=== PATIENT | female | born 1965 | race Caucasian/White ===

== ENCOUNTER → 2020-04-22 13:55 | Outpatient (CLI) | payer BC, SELFPAY ==
--- NOTE | ~2020-04-22 | MM_ITS ---
EXAMINATION: MM screening [facility] BI w alek HISTORY: Screening mammogram TECHNIQUE: Craniocaudal and mediolateral oblique 3-D tomosynthesis images were obtained and synthetic 2-D images were generated. CAD analysis was submitted and interpreted. COMPARISON: 12/20/2018, 12/06/2017, 06/27/2016 BREAST PARENCHYMAL COMPOSITION: There are scattered areas of fibroglandular density. FINDINGS: There is no evidence of suspicious mass, calcification, or architectural distortion to sugg est malignancy in either breast. There has been no suspicious interval change. IMPRESSION: 1. No mammographic evidence of malignancy. 2. Recommend routine screening mammography in one year. BI-RADS Category 1: Negative Reviewed, dictated and finalized at location B.
== END ==
PROVIDERS: Visit Provider Nurse Practitioner
DX: Z12.31 Encounter for screening mammogram for malignant neoplasm of breast (principal)
CPT/HCPCS: 77063; 77067

== ENCOUNTER → 2021-12-08 14:28 | Outpatient (CLI) | payer BC, SELFPAY ==
--- NOTE | ~2021-12-08 | MM_ITS ---
EXAMINATION: MM screening [facility] BI w alek HISTORY: Screening mammogram TECHNIQUE: Craniocaudal and mediolateral oblique 3-D tomosynthesis images were obtained and synthetic 2-D images were generated. CAD analysis was submitted and interpreted. COMPARISON: 04/22/2020, 12/20/2018 BREAST PARENCHYMAL COMPOSITION: There are scattered areas of fibroglandular density. FINDINGS: There is no suspicious mass, calcification, or architectural distortion to suggest malignan cy in either breast. There has been no suspicious interval change. IMPRESSION: 1. No mammographic evidence of malignancy. 2. Recommend routine screening mammography in one year. BI-RADS Category 1: Negative Reviewed, dictated and finalized at location A.
== END ==
PROVIDERS: PCP Family Medicine Sports Medicine; Visit Provider Obstetrics & Gynecology Gynecology
DX: Z12.31 Encounter for screening mammogram for malignant neoplasm of breast (principal)
CPT/HCPCS: 77063; 77067

== ENCOUNTER → 2022-10-26 10:30 | Outpatient (CLI) | payer BC, SELFPAY ==
--- NOTE | ~2022-10-26 | US_ITS ---
Pelvic ultrasound. Clinical History: Pelvic pain Technique: Realtime transabdominal scanning of the pelvis was performed. Color flow Doppler and Doppl er spectral analysis were performed. Findings: The uterus is anteverted. The endometrial stripe has a thickness of 4 mm. Suspected subtle posterior wall fibroid measures up to 3.5 cm in diameter. Additional possible subtle fibroid anterio rly measures 2.1 cm in diameter. The right ovary measures 2.5 x 1.6 x 1.9 cm. No significant right ovarian or adnexal mass is seen. The left ovary measures 3.3 x 2.2 x 2.8 cm. Simple left ovarian cyst measures 2.2 cm in diameter. There is no evidence of free fluid in the cul de sac. Impression: 2.2 cm simple left ovarian cyst. Suspected uterine fibroids, as detailed above. Reviewed, dictated and finalized at [facility]. ADMINISTRATOR OR MANAGER Impression: 2.2 cm simple left ovarian cyst. Suspected uterine fibroids, as detailed above.
== END ==
PROVIDERS: PCP Family Medicine Sports Medicine; Visit Provider Nurse Practitioner
DX: R10.2 Pelvic and perineal pain (principal); N83.202 Unspecified ovarian cyst, left side
CPT/HCPCS: 76856

== ENCOUNTER → 2022-12-28 13:38 | Outpatient (CLI) | payer BC, SELFPAY ==
--- NOTE | ~2022-12-28 | MM_ITS ---
EXAMINATION: MM screening [facility] BI w alek HISTORY: Screening TECHNIQUE: Craniocaudal and mediolateral oblique 3-D tomosynthesis images were obtained and synthetic 2-D images were generated. CAD analysis was submitted and interpreted. COMPARISON: Comparison to multiple prior studies sequentially, with oldest reviewed study dated 02/2015. BREAST PARENCHYMAL COMPOSITION: Breast composed of scattered areas of fibroglandular density FINDINGS: There is no evidence of suspicious mass, calcification, or architectural distortion to sugg est malignancy in either breast. There has been no suspicious interval change. IMPRESSION: 1. No mammographic evidence of malignancy. 2. Recommend routine screening mammography in one year. BI-RADS Category 1: Negative Reviewed, dictated and finalized at location A.
== END ==
PROVIDERS: PCP Nurse Practitioner; Visit Provider Nurse Practitioner
DX: Z12.31 Encounter for screening mammogram for malignant neoplasm of breast (principal)
CPT/HCPCS: 77063; 77067

== ENCOUNTER 2024-05-05 14:57 | Outpatient (CLI) | payer OTHER, SELFPAY ==
--- NOTE | ~2024-05-05 | MM_ITS ---
EXAMINATION: MM screening [facility] BI w alek HISTORY: Screening TECHNIQUE: Craniocaudal and mediolateral oblique 3-D tomosynthesis images were obtained and synthetic 2-D images were generated. CAD analysis was submitted and interpreted. COMPARISON: Comparison to multiple prior studies sequentially, with oldest reviewed study dated 12/2015. BREAST PARENCHYMAL COMPOSITION: Not dense: There are scattered areas of fibroglandular density. FINDINGS: There is no evidence of suspicious mass, calcification, or architectural distortion to sugg est malignancy in either breast. There has been no suspicious interval change. IMPRESSION: 1. No mammographic evidence of malignancy. 2. Recommend routine screening mammography in one year. BI-RADS Category 1: Negative Reviewed, dictated and finalized at location B.
== END 2024-05-05 14:58 ==
LOC: MICIMG 15:01
PROVIDERS: PCP Obstetrics & Gynecology Gynecology; Visit Provider Obstetrics & Gynecology Gynecology
DX: Z12.31 Encounter for screening mammogram for malignant neoplasm of breast (principal)
CPT/HCPCS: 77063; 77067

== ENCOUNTER 2025-01-22 12:35 | Outpatient (CLI) | payer OTHER, SELFPAY ==
--- NOTE | ~2025-01-22 | US_ITS ---
Pelvic ultrasound. Clinical History: Postmenopausal bleeding Technique: Realtime transabdominal and transvaginal scanning of the pelvis was performed. Color flow Doppler and Doppler spectral analysis were performed. Findings: The uterus is anteverted. The endometrial stripe has a thickness of 6 mm. Suspected small intramural fibroids, largest measuring 2.9 cm in diameter.. The right ovary measures 2.2 x 2.7 x 1.4 cm. No significant right ovarian or adnexal mass is seen. The left ovary measures 2.5 x 2.8 x 1.7 cm. No significant left ovarian or adnexal mass is seen. There is no evidence of free fluid in the cul de sac. Impression: Proximal small uterine fibroids, as above. Endometrial stripe is upper limits of normal in thickness, especially given transabdominal imaging. Reviewed, dictated and finalized at [facility]. Impression: Proximal small uterine fibroids, as above. Endometrial stripe is upper limits of normal in thickness, especially given tra nsabdominal imaging.
== END 2025-01-22 12:36 | disposition home or self-care (01) ==
PROVIDERS: PCP Family Medicine; Visit Provider Obstetrics & Gynecology Gynecology
DX: N95.0 Postmenopausal bleeding (principal); D25.9 Leiomyoma of uterus, unspecified
CPT/HCPCS: 76856

== ENCOUNTER 2025-03-02 02:04 | Day surgery (SDC) | payer OTHER, SELFPAY ==
--- NOTE | 2025-02-23 11:54 | PC.NURSE ---
Report to the Outpatient Waiting Room, entrance under the green pavilion located off [facility], at time __6 AM on date ___03/02/25____. Planned Procedure Time: __7:30 AM .? Time changes happen often and if your time is changed the preop area will call you the afternoon before. - You and your visitor will be asked to self-screen and do not enter if you have any COVID symptoms. Please call surgeon if you need to reschedule. - A mask is optional within the hospital at this time. Patients may have clear liquids (water, carbonated beverages, clear teas, apple juice) until 3 hours prior to surgery ( 4:30 AM) with a maximum of 20 ounces. - No food from midnight until time of surgery and no smoking, or chewing tobacco (or any form of nicotine). No chewing gum, candy or mints. Take only the following medications with a SIP of water on the morning of surgery: NONE DO NOT STOP ANY OF YOUR OTHER PRESCRIPTION MEDICATIONS PRIOR TO SURGERY EXCEPT THE FOLLOWING Hold all vitamins and supplements for 3 days per anesthesiologist. Medications to discontinue per physician NONE Date to take last dose Please no make-up, nail yoruba, hairspray, perfume, deodorant, or body powder the day of surgery.? No jewelry (including any body piercings) or valuables the day of surgery, leave them at home.? Please take a shower or bath the night before, or the morning of, surgery with an antibacterial soap.? Wear comfortable, loose fitting clothing.? Children are encouraged to wear pajamas. - Jewelry must be removed prior to entering the operating room.? Rings and piercings that are not removed may be cut off. - The hospital will not accept responsibility for valuables.? - Please leave all valuables, including medications, at home the day of surgery. If you are going home after surgery, a licensed nascar driver must drive you home.? - NO public transportation without another adult if you receive anesthesia. - We recommend that an adult stay with you for 24 hours following discharge. - We also recommend that you do not drive, make important decision, drink alcoholic beverages, or take any drugs that were not prescribed by your health care provider for at least 24 hours after your discharge time. For Pediatric surgeries, we recommend two adults accompany the child home. Follow any additional instructions given to you from your surgeon. Telephone instructions given to __PATIENT and asked if any additional questions and then verbalized understanding. Patient advised to call surgeon office or pre surgery nurse liaison [phone] if any additional questions.
[2025-02-23 12:11] VITALS: BMI 30.9
[2025-03-02 06:45] VITALS: BP 179/89; PULSE 59; RESP 14; TEMP 36.2; O2SAT 99
[2025-03-02] MEDS: ACETAMINOPHEN 500 MG TABLET 1000 MG PO (06:45)
[2025-03-02] MEDS: LACTATED RINGERS 1,000 ML 30 ML IV CONT (06:45)
--- NOTE | 2025-03-02 07:00 | P.PNAN_ITS ---
Anes - Initial Pre Proc Eval Procedure: Operation Date: 03/02/25 07:30 Proposed Procedures p Hysteroscopy Dilation and Curettage - Bel Palmer MD Date/Time: 03/02/25 07:00 Surgeon: Bel Palmer MD Pre Op Diagnosis: post menopausal bleeding Patient Data Age: 59 Gender: F Height: 1.63 m Weight: 81.65 kg Allergies Allergy/AdvReac Type Severity Reaction Status Date / Time gabapentin AdvReac Nausea Verified 02/23/25 11:51 oxycodone AdvReac ITCHING Verified 02/23/25 11:51 AND SKIN CRAWLING Home Medications ?Medication ?Instructions ?Recorded ?Confirmed ?Type atorvastatin 10 mg tablet 10 mg PO QPM 11/18/24 02/23/25 History valacyclovir 500 mg tablet 1,000 mg PO Q12H PRN LESION 11/18/24 02/23/25 History OUTBREAK Patient hx anesthesia problems: none Family hx anesthesia problems: none Results Review: All pre-operative results and documents have been reviewed as part of the pre- operative evaluation. [facility] Past Medical History Medical History Anemia Gestational diabetes Herpes Cholelithiasis Bronchitis Asthma Allergies Surgical History Surgical History H/O dilation and curettage Hx of cholecystectomy Family History Family History Mother Hypertension Social History Social History Smoking packs per day: 0.25 Smoking cigarettes per day: 5.0 Years smoked: 2 Smoking pack-years: 0.50 Smoking status: Former smoker Tobacco type: cigarettes Smoking end date: 09/24/88 Additional smoking assessment comments: QUIT 1989 Alcohol intake: current Drinks per week: 2 Living arrangements: with family Spiritual care concerns: No Anes - Eval Final PreProcedure Day of Procedure 03/02/25 07:00 Patient weight: overweight Heart: regular rate and rhythm Lungs: clear to auscultation Airway: Mallampati scale class II Neurological: alert and oriented Last oral intake: >/= 8 hours ASA classification: II Emergent: no Anesthetic plan: proceed Anesthesia type and monitoring: general GIVS and standard monitoring Results Review: All pre-operative results and documents have been reviewed as part of the pre- operative evaluation. Informed Consent: The patient's anesthetic plan and its attendant risks and benefits were discussed with the patient/family/POA. Questions were solicited and answers provided to the satisfaction of the patient/family/POA.
--- NOTE | 2025-03-02 07:21 | WPDHPUPDATE1 ---
History and Physical Update Update Date/Time: 03/02/25 07:21 History and Physical has been reviewed, including an updated exam of the patient. There are NO changes in the patient's condition. Risks, benefits, and alternatives have been discussed and questions answered. Patient agrees to proceed with procedure.
--- NOTE | 2025-03-02 07:21 | PM.HPGS ---
History of Present Illness History of Present Illness Consent: Risks, benefits, and alternatives have been discussed and questions answered. Patient agrees to proceed with procedure. Chief complaint: post menopausal bleeding Narrative: Pam Ochoa is a 59 year old female with postmenopausal bleeding. Ultrasound showed thickened endometrium. In addition the ultrasound shows fibroids. It was recommended to undergo D&C hysteroscopy for further evaluation of the endometrium. The risks of infection, bleeding, perforation, and possible pathology are reviewed. In addition it was discussed if the fibroid is the only finding and I am able to see fully around it it would not be removed. Patient was understanding and agrees to proceed. Review of Systems Review of Systems: not repeated day of surgery; patient states no changes in status PMFSH Past Medical History Medical History (Updated 03/02/25 @ 07:25 by Bel Palmer MD) History of 1992 (normal spontaneous vaginal delivery) X2 Elevated cholesterol Anemia Gestational diabetes 1989 Herpes Bronchitis Asthma Allergies Surgical History Surgical History (Updated 03/02/25 @ 07:25 by Bel Palmer MD) History of surgical removal of ganglion cyst H/O dilation and curettage Hx of cholecystectomy Family History Family History Mother Hypertension Social History Social History Smoking packs per day: 0.25 Smoking cigarettes per day: 5.0 Years smoked: 2 Smoking pack-years: 0.50 Smoking status: Former smoker Tobacco type: cigarettes Smoking end date: 09/24/88 Additional smoking assessment comments: QUIT 1988 Alcohol intake: current Drinks per week: 2 Living arrangements: with family Spiritual care concerns: No Meds Home Medications and Allergies Home Medications ?Medication ?Instructions ?Recorded ?Confirmed ?Type atorvastatin 10 mg tablet 10 mg PO QPM 11/18/24 02/23/25 History valacyclovir 500 mg tablet 1,000 mg PO Q12H PRN LESION 11/18/24 02/23/25 History OUTBREAK Allergies Allergy/AdvReac Type Severity Reaction Status Date / Time gabapentin AdvReac Nausea Verified 03/02/25 07:10 oxycodone AdvReac ITCHING Verified 03/02/25 07:10 AND SKIN CRAWLING Vital Signs Vital Signs - 24 hr 03/02/25 06:45 Temperature 97.2 F L Pulse Rate 59 L Respiratory Rate 14 Blood Pressure 179/89 H Pulse Oximetry 99 Oxygen Delivery Room Air Exam Const: General: healthy appearing and alert Orientation/consciousness: patient oriented x3 Resp: Effort & Inspection: normal respiratory effort GI: GI Palp: Yes Soft to palpation, No Tenderness to palpation present (GI) and No Palpable mass present : External Female Exam: normal external appearance Speculum Exam - Vagina: normal appearance of the vagina and normal vaginal discharge Speculum Exam - Cervix: normal appearance of the cervix Bimanual exam- vagina & uterus: uterine size normal and consistency normal Bimanual Exam- Adnexa, other: normal adnexae and No adnexal tenderness Neuro: General: patient oriented x3 Assessment and Plan Assessment and plan (1) Post-menopausal bleeding: Code(s): N95.0 - Postmenopausal bleeding Status: Acute Assessment and Plan: Plan to proceed with D&C hysteroscopy
--- NOTE | 2025-03-02 07:43 | S_PTH ---
PATIENT: Pam Ochoa LOC: [facility]#:[id number] AGE/SX: 59/F ROOM: RE03/02/[address]: Bel Palmer MD : 1965 BED: DIS: 03/02/2025 SPEC #: [id number] RECD: 03/02/25 10:33 STATUS: TONY REVianey #: [id number] MILI: 03/02/25 07:[address]: Bel Palmer DEPT: [facility] Surgical RECD BY: Mei Weaver ENTERED: 03/02/25 10:33 SP TYPE: Surgical OTHR DR: Arron Beckham, Tissues: A - Endometrial Curettings Procedures: Hematoxylin and Eosin Stain Gross and Microscopic Level 4
--- NOTE | 2025-03-02 07:47 | W.PM.PROC2 ---
Procedure Note - Detailed Date of Procedure 03/02/25 Pre-op Diagnosis post menopausal bleeding Post-op Diagnosis Same Procedure Performed D&C hysteroscopy Surgeon Bel Palmer MD Anesthesia MAC Findings Uterus sounds to 8cm appears grossly atrophic with scarring near the left cornu. Description of Procedure The patient was taken to the operating room and placed under anesthesia in the dorsal lithotomy position. She was prepped and draped in usual sterile fashion. [place] speculum was placed in the vagina and the cervix grasped on the anterior lip with a tenaculum. The uterus sounded to 8cm. The diagnostic hysteroscope was placed and above-stated findings the hysteroscope was removed. The sharp curette was used to curette the endometrium with particular attention to the left cornua. Minimal material was obtained consistent with the visual appearance. Instruments are removed. Sponge, needle, and instrument counts are correct per the OR staff. The patient is taken to recovery in stable condition. Estimated Blood Loss 5 Drains No Packing No Pathology Yes (Endometrial curettings) Complications No immediate complications Condition Stable Disposition PACU
[2025-03-02 07:50] VITALS: BP 148/64; PULSE 64; RESP 14; O2SAT 93
[2025-03-02 08:20] VITALS: BP 140/73; PULSE 60; RESP 14; O2SAT 93
[2025-03-02 08:50] VITALS: BP 179/89; PULSE 57
== END 2025-03-02 09:03 | disposition home or self-care (01) ==
PROVIDERS: PCP Family Medicine; Visit Provider Obstetrics & Gynecology Gynecology
PROC: 0U5B8ZZ Destruction of Endometrium, Via Natural or Artificial Opening Endoscopic (ICD-10-PCS; CPT 58563; principal; 2025-03-02 07:30)
DX: N95.0 Postmenopausal bleeding (principal); N85.8 Other specified noninflammatory disorders of uterus; Z87.891 Personal history of nicotine dependence
CPT/HCPCS: 58558; 88305; A9270; J2003; J2250; J2405; J2704; J3010; J7120

== ENCOUNTER 2025-04-07 13:23 | Outpatient (CLI) | payer OTHER, SELFPAY ==
--- NOTE | ~2025-04-07 | DEXA_ITS ---
Bone Density Report Name: BETTY ERNST Age: 59 Sex: Female Ethnicity: White Date of : 1965 Indication: postmenopausal; screening for osteoporosis; height loss; Referring Provider: DANIEL LANGLEY Study: Bone densitometry was performed. Exam Date: April 07, 2025 Accession number: [id number] Bone Density: Region BMD T-score Z-score Classification AP Spine(L1-L4) 1.095 0.4 1.7 Normal Femoral Neck (Left) 0.906 0.5 1.7 Normal Total Hip (Left) 1.102 1.3 2.1 Normal Femoral Neck (Right) 0.936 0.8 2.0 Normal Total Hip (Right) 1.125 1.5 2.3 Normal Total Hip Mean 1.114 1.4 2.2 Normal World Health Organization criteria for BMD impression classify patients as: Normal (T-score at or above -1.0), Osteopenia (T-score between -1.0 and -2.5), or Osteoporosis (T-score at or below -2.5). 10-year Fracture Risk: FRAX not reported because: All T-scores for Spine Total, Hip Total, Femoral Neck at or above -1.0 Clinical Information Provided by Patient: Patient maximum height was 64 Menopause Age: 52 Drinks caffeinated beverages Onset of menses at age 17 Number of children 2 Impression: The patient has normal bone mass. Discussion: BONE DENSITY IS ABOVE THE MINIMUM DESIRABLE LEVEL AT ALL SKELETAL SITES TESTED. This patient?s bone mineral density is above the minimum desirable level (T-score -1.0 or better) at all sites measured. The patient should follow a healthful lifestyle (good nutrition with adequate calcium and vitamin D, and appropriate weight-bearing exercise). Follow-Up: Consider repeating this study in 5 years or sooner if there is some new clinical indication. Reported by: SAMARA on 04/07/2025 1:45:00 PM. Reviewed, dictated and finalized at location A.
== END 2025-04-07 13:24 | disposition home or self-care (01) ==
PROVIDERS: PCP Family Medicine; Visit Provider Obstetrics & Gynecology Gynecology
DX: Z13.820 Encounter for screening for osteoporosis (principal); Z78.0 Asymptomatic menopausal state
CPT/HCPCS: 77080

== ENCOUNTER 2025-05-12 14:30 | Outpatient (CLI) | payer OTHER, SELFPAY ==
--- NOTE | ~2025-05-12 | MM_ITS ---
EXAMINATION: MM screening [facility] BI w alek HISTORY: Screening mammogram TECHNIQUE: Craniocaudal and mediolateral oblique 3-D tomosynthesis images were obtained and synthetic 2-D images were generated. CAD analysis was submitted and interpreted. COMPARISON: 05/05/2024, 12/28/2022, 12/08/2021, 04/22/2020 BREAST PARENCHYMAL COMPOSITION:Not Dense. There are scattered areas of fibroglandular density. FINDINGS: No suspicious mass, calcification, or architectural distortion are identified in either breast to suggest malignancy. There has been no suspicious interval change. IMPRESSION: No mammographic evidence of malignancy. Recommend routine screening mammography in one year. BI-RADS Category 1: Negative Reviewed, dictated and finalized at location .
== END 2025-05-12 14:31 | disposition home or self-care (01) ==
LOC: MICIMG 14:32
PROVIDERS: PCP Family Medicine; Visit Provider Obstetrics & Gynecology Gynecology
DX: Z12.31 Encounter for screening mammogram for malignant neoplasm of breast (principal)
CPT/HCPCS: 77063; 77067